=== PATIENT | male | born 1955 | race Caucasian/White ===

== ENCOUNTER 2018-05-07 09:38 | Emergency (ER) | payer OTHER ==
[~2018-05-07] VITALS: Ht 167.6 cm; Wt 71.7 kg
--- NOTE | 2018-05-07 09:38 | NUR ---
BIB [facility] FROM HOME,SEIZURE 2X AT HOME AND UPON ARRIVAL, TO ER BED 8, DR DALAL AT BEDSIDE, SEIZURE PRECAUTIONS APPLIED, KEPT PT SAFE, HOOKED TO MONITOR.
[2018-05-07] MEDS ORDERED: LORAZEPAM INJ 2 MG/ML VIAL ONE (09:39)
--- NOTE | 2018-05-07 09:39 | NUR ---
DR DALAL AT BEDSIDE FOR EVAL
[2018-05-07] MEDS ORDERED: LORAZEPAM INJ 2 MG/ML VIAL IVP ONE (10:00)
[2018-05-07 10:10] LABS: BASOPHILS # (AUTO) 0.1 /CMM (0.0-0.2); BASOPHILS % (AUTO) 1.1 % (0.0-2.0); EOSINOPHILS % (AUTO) 0.2 % (0.0-6.0); HEMATOCRIT 33 % (39-51); HEMOGLOBIN 11.3 g/dL (13.5-17.5); LYMPHOCYTES # (AUTO) 2.2 /CMM (0.8-4.8); MEAN CORPUSCULAR HGB CONC 35 g/dl (31.0-36.0); MEAN CORPUSCULAR VOLUME 104 fL (80-96); MONOCYTES # (AUTO) 1.1 /CMM (0.1-1.30); MONOCYTES % (AUTO) 15.2 % (2.0-12.0); NEUTROPHILS % (AUTO) 53.5 % (43.0-81.0); PLATELET COUNT (AUTO) 107 /CMM (150-450); RED BLOOD CELL COUNT(AUTO) 3.12 MIL/uL (4.5-6.0); WHITE BLOOD COUNT (AUTO) 7.4 K/uL (4.3-11.0)
[2018-05-07 10:29] LABS: PHENYTOIN (DILANTIN) 0.6 ug/ml (10.0-20.0)
[2018-05-07 10:30] LABS: CALCIUM, SERUM 8.8 mg/dL (8.5-10.1); CARBON DIOXIDE 17 mmol/L (21-32); CHLORIDE 99 mmol/L (98-107); CREATININE 1.3 mg/dL (0.6-1.3); GLUCOSE 178 mg/dL (74-106); POTASSIUM 3.6 mmol/L (3.5-5.1); SODIUM SERUM 138 mmol/L (136-145); UREA NITROGEN, BLOOD 20 mg/dL (7-18)
[2018-05-07 10:31] LABS: PHENOBARBITAL 1 ug/ml (15-39)
[2018-05-07 10:32] LABS: VALPROIC ACID < 3 ug/mL (50-100)
--- NOTE | 2018-05-07 10:34 | NUR ---
PT IN BED ASLEEP, HOOKED TO CNA CAREGIVER, ON SEIZURE PRECAUTION, MOUTH SUCTIONED FOR SECRETIONS, FAM AT BEDSIDE, KEPT SAFE AND COMFORTABLE.
[2018-05-07 10:35] LABS: ALANINE AMINOTRANSFERASE 31 U/L (12-78); ALBUMIN 3.5 g/dL (3.4-5.0); ALKALINE PHOSPHATASE 76 U/L (46-116); ASPARTATE AMINOTRANSFERASE 18 U/L (15-37); BILIRUBIN,DIRECT 0.1 mg/dL (0.0-0.2); BILIRUBIN,TOTAL 0.4 mg/dL (0.2-1.0); TOTAL PROTEIN, SERUM 6.8 g/dL (6.4-8.2)
[2018-05-07 10:42] LABS: LYMPHOCYTES % (MANUAL) 28 % (16-48); MONOCYTES % (MANUAL) 12 % (0-11.0); NEUTROPHILS % (MANUAL) 60 (42-76)
--- NOTE | 2018-05-07 11:10 | NUR ---
Called [facility] for MD to MD call back.
[2018-05-07] MEDS ORDERED: IV NS 0.9% 1,000 ML BAG IV ONE (11:30)
--- NOTE | 2018-05-07 12:40 | NUR ---
PT OPENS EYES, AOx1, SPEECH IS INCOHERENT, KEPT ON SEIZURE PRECAUTION, HOOKED TO MONITOR.
[2018-05-07] MEDS ORDERED: FOSPHENYTOIN SODIUM PE 100 MG/2 ML VIAL IV ONE (13:00)
[2018-05-07] MEDS ORDERED: FOSPHENYTOIN SODIUM PE IV ONE (14:00)
[2018-05-07] MEDS ORDERED: NS 0.9% IV ONE (14:00)
--- NOTE | 2018-05-07 14:16 | NUR ---
PT IN BED ASLEEP, EASILY AROUSABLE BY VOICE, KEPT ON SEIZURE PRECAUTION, HOOKED TO MONITOR, KEPT SAFE AND COMFORTABLE.
--- NOTE | 2018-05-07 15:05 | NUR ---
CALLED [facility]
--- NOTE | 2018-05-07 15:41 | NUR ---
[place] IN [place] SET BED 1393 GIVE REPORT TO [phone] ACCEPTING DOCTOR Ericka PAREDES ORDERED WITH [facility] AT [id number]
--- NOTE | 2018-05-07 16:05 | NUR ---
REPORT GIVEN TO ADELSO MOLINA OF [facility].
[2018-05-07 16:50] VITALS: BP 105/63
--- NOTE | 2018-05-07 17:00 | NUR ---
Patient discharged to [facility] in stable condition. Patient will be brought to [facility] family aware of the transfer. Written and verbal after care instructions given. Family verbalizes understanding of instruction.
== END 2018-05-07 17:05 ==
LOC: ER 09:39
DX: R56.9 Unspecified convulsions (principal); C71.9 Malignant neoplasm of brain, unspecified; R41.82 Altered mental status, unspecified; D69.6 Thrombocytopenia, unspecified; S00.411A Abrasion of right ear, initial encounter; Z88.1 Allergy status to other antibiotic agents; W20.8XXA Other cause of strike by thrown, projected or falling object, initial encounter; Y93.89 Activity, other specified; Y92.89 Other specified places as the place of occurrence of the external cause; Y99.8 Other external cause status
CPT/HCPCS: 36415; 70450; 71045; 80048; 80076; 80164; 80184; 80185; 83605 ×2; 85025; 85730; 87040 ×2; 93005; 96361; 96365; 96375; 99291; J2060; J7030 ×2